=== PATIENT | female | born 1980 | race Caucasian/White ===

== ENCOUNTER 2020-07-20 16:41 | Emergency (ER) | payer SELFPAY ==
[~2020-07-20] VITALS: Ht 180.3 cm; Wt 105.7 kg
[2020-07-20 16:50] VITALS: BP 135/72
--- NOTE | 2020-07-20 17:19 | RAD ---
4 views right knee HISTORY: Pain status post fall AP lateral oblique and sunrise views The visualized osseous structures appear normal. IMPRESSION: No acute findings. Electronically signed by: Travis Oconnor III, MD (07/20/2020 5:17 PM) HERR[facility] CAMPUSSUNDAY
--- NOTE | 2020-07-20 17:25 | PHYS DOC ---
Adult General Chief Complaint Chief Complaint: KNEE INJURY HPI HPI Patient is a 39-year-old female patient presenting to the ED today complaining of mild intermittent right anterior knee pain that began yesterday after she missed a step and fell landing on her knee. Patient denies any loss of consciousness. Describes the pain as sharp and constant worse on weightbearing. She states elevation relieves some of the pain. (ADELSO HERRERA APRN) Review of Systems Review of Systems Constitutional: Denies fever or chills [] Musculoskeletal: Reports right anterior knee pain Integument: Denies rash or skin lesions [] Neurologic: Denies headache, focal weakness or sensory changes [] All other systems were reviewed and found to be within normal limits, except as documented in this note. (ADELSO HERRERA APRN) Allergies Allergies Allergies Coded Allergies Type Severity Reaction Last Updated Verified No Known Drug Allergies 07/20/20 No (ADELSO HERRERA APRN) Physical Exam Physical Exam Constitutional: Well developed, well nourished, no acute distress, non-toxic appearance. [] Skin: Warm, dry, no erythema, no rash. [] Back: No tenderness, no CVA tenderness. [] Extremities: Right anterior knee with mild bruising and soft tissue swelling. Tenderness on palpation of the right anterior knee. Limited range of motion to the right knee due to pain. +2 right pedal pulse. Cap refill less than 2 seconds lower extremity. Neurologic: Alert and oriented X 3, normal motor function, normal sensory function, no focal deficits noted. [] Psychologic: Affect normal, judgement normal, mood normal. [] (ADELSO HERRERA APRN) EKG EKG [] (ADELSO HERRERA APRN) Radiology/Procedures Radiology/Procedures []PROCEDURE: KNEE RIGHT 4V 4 views right knee HISTORY: Pain status post fall AP lateral oblique and sunrise views The visualized osseous structures appear normal. IMPRESSION: No acute findings. Electronically signed by: Radha Beltran III, MD (07/20/2020 5:17 PM) [facility] DICTATED AND SIGNED BY: RADHA BELTRAN III, MD DATE: 07/20/20 1348 CC: ADELSO HERRERA APRN; PCP,NO ~MTH0 0 (ADELSO HERRERA APRN) Heart Score Risk Factors: Risk Factors: DM, Current or recent (<one month) smoker, HTN, HLP, family history of CAD, obesity. Risk Scores: Risk Factors: DM, Current or recent (<one month) smoker, HTN, HLP, family history of CAD, obesity. (ADELSO HERRERA APRN) Course & Med Decision Making Course & Med Decision Making Pertinent Labs and Imaging studies reviewed. (See chart for details) This is a 39-year-old female patient presented to the ED today with right knee pain status post falling yesterday. Right knee x-rays interpreted by radiologist negative for any acute findings. Rocco bandage and immobilizer applied to the knee by the ED. Ice elevation encouraged. OTC pain relievers. Follow-up with orthopedic doctor in 1 week. (ADELSO HERRERA APRN) Dragon Disclaimer Dragon Disclaimer This electronic medical record was generated, in whole or in part, using a voice recognition dictation system. (ADELSO HERRERA APRN) Attending Co-Sign I oversaw on the above date of service of this patient and discussed the care with the [employer]. I agree with the findings, plan of care, and disposition as documented. (HOOD DUBOSE DO) Departure Departure: Impression: Primary Impression: Fall Additional Impression: Contusion of knee, right Disposition: 01 DC HOME SELF CARE/HOMELESS Condition: STABLE Referrals: PCP,HELEN (PCP) RADHA BELLE MD follow up in one week if pain Patient Instructions: Contusion, [id number] Additional Instructions: You were seen for right knee contusion, your right knee x-rays were negative for any acute findings. Try to ice and elevate the extremity. Wear the Rocco bandage and immobilizer provided as tolerated with orthopedic doctor in 1 week if pain persist Problem Qualifiers Primary Impression: Fall Encounter type: initial encounter Qualified Codes: W19.XXXA - Unspecified fall, initial encounter Additional Impression: Contusion of knee, right Encounter type: initial encounter Qualified Codes: S80.01XA - Contusion of right knee, initial encounter ADELSO HERRERA APRN Jul 20, 2020 17:25 HOOD DUBOSE DO Jul 21, 2020 06:29
== END 2020-07-20 17:50 | disposition home or self-care (01) ==
LOC: ER 16:41
DX: S80.01XA Contusion of right knee, initial encounter (principal); R60.0 Localized edema; W10.8XXA Fall (on) (from) other stairs and steps, initial encounter; Y93.89 Activity, other specified; Y92.89 Other specified places as the place of occurrence of the external cause; Y99.8 Other external cause status
CPT/HCPCS: 29505; 73564; 99283

== ENCOUNTER 2021-05-05 14:35 | Emergency (ER) | payer MEDICAID ==
[~2021-05-05] VITALS: Ht 180.3 cm; Wt 98.8 kg
[2021-05-05 14:35] VITALS: BP 145/84
--- NOTE | 2021-05-05 15:20 | PHYS DOC ---
Past History Past Medical History: Depression Past Surgical History: No Surgical History Alcohol Use: Occasionally Adult General Chief Complaint Chief Complaint: ABDOMINAL PAIN IN HPI HPI Patient is a 40-year-old female presents to the emergency department complaining of sudden onset of lower abdomen cramping with vaginal bleeding and vaginal spotting just prior to arrival to the ER. Patient reports she was told by [facility] that she is 10 weeks 2 days and has a due date of November [id number]. Patient reports she is a 4 para 2 SAB 1 at 7 weeks. Denies vaginal itching or vaginal sores or vaginal lesions. Denies nausea, vomiting, diarrhea. Denies constipation. States she has not soaked any fem inine pads with blood. Denies recent fever or chills, chest pains, chest congestion or nasal congestion, dizziness or syncopal episodes. Patient denies other physical complaints or physical concerns. Patient reports her OB care at [facility]. Reports she is taking Lexapro and a vitamin daily, denies allergies to medications. Review of Systems Review of Systems 14 body systems of review of systems have been reviewed. See HPI for pertinent positives and negative responses, otherwise all other systems are negative, nonpertinent or noncontributory. Constitutional: Negative except as outlined in HPI above. Skin: Negative except as outlined in HPI above. Eyes: Negative except as outlined in HPI above. HENT: Negative except as outlined in HPI above. Respiratory: Negative except as outlined in HPI above. Cardiovascular: Negative except as outlined in HPI above. GI: Negative except as outlined in HPI above. : Negative except as outlined in HPI above. Musculoskeletal: Negative except as outlined in HPI above. Integument: Negative except as outlined in HPI above. Neurologic: Negative except as outlined in HPI above. Endocrine: Negative except as outlined in HPI above. Lymphatic: Negative except as outlined in HPI above. Psychiatric: Negative except as outlined in HPI above. Allergies Allergies Allergies Coded Allergies Type Severity Reaction Last Updated Verified No Known Drug Allergies 07/20/20 No Physical Exam Physical Exam Constitutional: Well developed, well nourished, no acute distress, non-toxic appearance. 40-year-old female in no apparent distress. HENT: Normocephalic, atraumatic. Eyes: Conjunctiva normal, no discharge. Neck: Normal range of motion. Cardiovascular: Distal cap refill less than 2 seconds, no cyanosis appreciated. Lungs & Thorax: Patient is in no respiratory distress, no adventitious lung sounds appreciated. Abdomen: Bowel sounds normal, soft, no tenderness, no masses, no pulsatile masses. No bruising or skin discoloration of the abdomen. Skin: Warm, dry, no erythema, no rash. Back: No tenderness, no CVA tenderness. Extremities: No tenderness, no cyanosis, no clubbing, ROM intact, no edema. Neurologic: Alert and oriented X 3, normal motor function, normal sensory function, no focal deficits noted. Psychologic: Affect normal, judgement normal, mood normal. : Current Patient Data Vital Signs Vital Signs Date Time Temp Pulse Resp B/P (MAP) Pulse Ox O2 Delivery O2 Flow Rate FiO2 05/05/21 14:35 73 14 145/84 (104) 100 Room Air EKG EKG [] Radiology/Procedures Radiology/Procedures [] Heart Score C/O Chest Pain: No Risk Factors: Risk Factors: DM, Current or recent (<one month) smoker, HTN, HLP, family history of CAD, obesity. Risk Scores: Risk Factors: DM, Current or recent (<one month) smoker, HTN, HLP, family history of CAD, obesity. Course & Med Decision Making Course & Med Decision Making Pertinent Labs and Imaging studies reviewed. (See chart for details) 40-year-old female, vital signs reviewed, presents emergency department concerning vaginal bleeding and spotting with cramping during . Physical examination unremarkable, discussed with patient will obtain urinalysis assay, test. Draw labs for ABO/type, beta hCG quant, CBC, CMP. Abdominal ultrasound pending test to evaluate for IUP versus ectopic versus other pelvic process, will defer visual pelvic examination pending ultrasound study. Patient is amenable to ED planning. ED nurse reports patient left the emergency department ambulatory with steady gait prior to obtaining lab specimens. Patient has eloped from the emergency department. Dragon Disclaimer Dragon Disclaimer This electronic medical record was generated, in whole or in part, using a voice recognition dictation system. Departure Departure: Impression: Primary Impression: Eloped from emergency department Disposition: 07 LEFT AWOL/ELOPED Referrals: PCP,HELEN (PCP) EDIE PRADO APRN May 05, 2021 15:20
== END 2021-05-05 15:04 | disposition left against medical advice (07) ==
LOC: ER 14:35
DX: O20.8 Other hemorrhage in early pregnancy (principal); Z3A.10 10 weeks gestation of pregnancy
CPT/HCPCS: 99281

== ENCOUNTER 2021-05-10 07:23 | Emergency (ER) | payer MEDICAID ==
[~2021-05-10] VITALS: Ht 180.3 cm; Wt 98.8 kg
[2021-05-10] MEDS ORDERED: IV NORMAL SALINE 1,000ML 1,000 ML IV ONE (07:45)
[2021-05-10] MEDS ORDERED: ONDANSETRON PF 4 MG/2 ML VIAL. IVP ONE (08:00)
[2021-05-10] MEDS ORDERED: MORPHINE SULFATE 4 MG/ML DISP.SYRIN. IV ONE ×2 (08:00→09:00)
--- NOTE | 2021-05-10 08:08 | PHYS DOC ---
Past History Past Medical History: Depression Additional Past Medical Histor: PE Past Surgical History: No Surgical History Alcohol Use: Occasionally General Adult EDM: Chief Complaint: VAGINAL BLEEDING HPI: HPI: 40-year-old female presents with vaginal bleeding in . The patient was seen at another facility recently where an ultrasound was done. The sac was found to be within the uterus, but no heartbeat could be found. She is just over 10 weeks but the fetus measured 6 weeks. She started having significant bleeding and large clots overnight. She knows that this is a spontaneous miscarriage. The patient is having a lot of discomfort and cramping. She denies fever or chills. She has no other complaints at this time. Review of Systems: Review of Systems: Constitutional: Denies fever or chills Eyes: Denies change in visual acuity HENT: Denies nasal congestion or sore throat Respiratory: Denies cough or shortness of breath Cardiovascular: Denies chest pain or edema GI: abdominal cramping. Denies nausea, vomiting, bloody stools or diarrhea : Vaginal bleeding in Musculoskeletal: Denies back pain or joint pain Integument: Denies rash Neurologic: Denies headache, focal weakness or sensory changes Endocrine: Denies polyuria or polydipsia Lymphatic: Denies swollen glands Psychiatric: Denies depression or anxiety Current Medications: Current Meds: Current Medications Medications (Trade) Dose Ordered Sig/Radha Start Time Stop Time Status Last Admin Dose Admin Morphine Sulfate (Morphine 4mg Syringe) 4 mg 1X ONCE 05/10/21 08:00 05/10/21 08:01 UNV Ondansetron HCl (Zofran) 4 mg 1X ONCE 05/10/21 08:00 05/10/21 08:01 UNV Sodium Chloride 1,000 ml @ 1,000 mls/hr 1X ONCE 05/10/21 07:45 05/10/21 08:44 Allergies: Allergies: Allergies Coded Allergies Type Severity Reaction Last Updated Verified No Known Drug Allergies 07/20/20 No Physical Exam: PE: Constitutional: Well developed, well nourished, no acute distress, non-toxic appearance. [] HENT: Normocephalic, atraumatic, bilateral external ears normal, oropharynx moist, no oral exudates, nose normal. [] Eyes: PERRLA, EOMI, conjunctiva normal, no discharge. [] Neck: Normal range of motion, no tenderness, supple, no stridor. [] Cardiovascular: Heart rate regular rhythm, no murmur [] Lungs & Thorax: Bilateral breath sounds clear to auscultation [] Abdomen: Bowel sounds normal, soft, lower abdominal tenderness, no masses, no pulsatile masses. [] Skin: Warm, dry, no erythema, no rash. [] Back: No tenderness, no CVA tenderness. [] Extremities: No tenderness, no cyanosis, no clubbing, ROM intact, no edema. [] Neurologic: Alert and oriented X 3, normal motor function, normal sensory function, no focal deficits noted. [] Psychologic: Affect normal, judgement normal, mood tearful. [] Current Patient Data: Vital Signs: Vital Signs Date Time Temp Pulse Resp B/P (MAP) Pulse Ox O2 Delivery O2 Flow Rate FiO2 05/10/21 07:25 98.2 92 26 147/95 (112) 98 EKG: EKG: [] Radiology/Procedures: Radiology/Procedures: [] Heart Score: C/O Chest Pain: N/A Risk Factors: Risk Factors: DM, Current or recent (<one month) smoker, HTN, HLP, family history of CAD, obesity. Risk Scores: Score 0 - 3: 2.5% MACE over next 6 weeks - Discharge Home Score 4 - 6: 20.3% MACE over next 6 weeks - Admit for Clinical Observation Score 7 - 10: 72.7% MACE over next 6 weeks - Early Invasive Strategies Course & Med Decision Making: Course & Med Decision Making Pertinent Labs and Imaging studies reviewed. (See chart for details) The patient appears to be having a spontaneous miscarriage. Patient's labs are unremarkable except for mild anemia with a hemoglobin of 11.3. Her hCG is 2659. I have made the patient aware of this #2 share with her OB who is tracking her hCG levels. For her pain we have given her 2 doses of 4 mg of morphine. I will discharge her with [place] 5/325. She will continue to follow-up with [employer] for repeat hCG as well as any other management if it becomes necessary. Patient is stable for discharge at this time. [] Dragon Disclaimer: Dragon Disclaimer: This electronic medical record was generated, in whole or in part, using a voice recognition dictation system. Departure Departure: Impression: Primary Impression: Miscarriage, threatened, early Disposition: 01 HOME / SELF CARE / HOMELESS Condition: STABLE Referrals: PCP,NO (PCP) Patient Instructions: Miscarriage, [id number] Scripts Hydrocodone/Acetaminophen (Hydrocodone-Acetamin 5-325 mg) 1 Each Tablet 1 EACH PO Q4-6HRS PRN for PAIN, #10 TAB Prov: ARMANI BASS DO 05/10/21 ARMANI BASS DO May 10, 2021 08:08
[2021-05-10 08:11] LABS: BASO # 0.1 x10^3/uL (0.0-0.2); BASO % 1 % (0-3); EOS % 0 % (0-3); HEMATOCRIT 33.7 % (36.0-47.0); HEMOGLOBIN 11.3 g/dL (12.0-15.5); LYMPH # 2.7 x10^3/uL (1.0-4.8); LYMPH % 19 % (24-48); MEAN CORPUSCULAR HEMOGLOBIN 32 pg (25-35); MEAN CORPUSCULAR HGB CONC 33 g/dL (31-37); MEAN CORPUSCULAR VOLUME 94 fL (79-100); MONO # 0.5 x10^3/uL (0.0-1.1); MONO % 3 % (0-9); NEUT # 10.9 x10^3uL (1.8-7.7); NEUT % 77 % (31-73); PLATELET COUNT 259 x10^3/uL (140-400); RED BLOOD COUNT 3.57 x10^6/uL (3.50-5.40); RED CELL DISTRIBUTION WIDTH 13.2 % (11.5-14.5); WHITE BLOOD COUNT 14.1 x10^3/uL (4.0-11.0)
[2021-05-10 08:21] LABS: CALCIUM 8.7 mg/dL (8.5-10.1); CREATININE 0.9 mg/dL (0.6-1.0); GFR 69.7; POTASSIUM 3.7 mmol/L (3.5-5.1)
[2021-05-10 08:26] LABS: ALBUMIN 3.3 g/dL (3.4-5.0); ALBUMIN/GLOBULIN RATIO 0.9 (1.0-1.7); TOTAL BILIRUBIN 0.2 mg/dL (0.2-1.0); TOTAL PROTEIN 7.1 g/dL (6.4-8.2)
[2021-05-10] MEDS ORDERED: HYDR-2759 PO (09:58)
[2021-05-10] MEDS ORDERED: HYDROcodone/APAP 7.5/325MG 1 TAB TABLET PO ONE (10:00)
[2021-05-10 11:05] VITALS: BP 124/71
== END 2021-05-10 11:35 | disposition home or self-care (01) ==
LOC: ER 07:23
DX: O20.0 Threatened abortion (principal); Z3A.10 10 weeks gestation of pregnancy
CPT/HCPCS: 36415; 80053; 84702; 85025; 86900; 86901; 96361; 96374; 96375; 96376; 99284; J2270; J2405; J7030